=== PATIENT | female | born 1980 | race Caucasian/White ===

== ENCOUNTER → 2017-03-11 | Outpatient (CLI) | payer OTHER ==
[2017-03-11 18:48] LABS: BASO % 0.2 %; BASO ABS # 0.01 K/uL (0-0.2); COMPLETE YES; EOS % 2.5 %; HEMATOCRIT 40.2 % (37-47); IG% 0.2 %; LYMPH % 26.6 %; LYMPH ABS # 1.73 K/uL (1.2-3.4); MEAN CORPUSCULAR HEMOGLOBIN 27.7 pg (25-34); MEAN CORPUSCULAR HGB CONC 32.6 g/dl (32-36); MEAN PLATELET VOLUME 10.8 fL (7.4-10.4); MONO % 7.4 %; NEUT % 63.1 %; PLATELET COUNT 233 K/uL (130-400); RED BLOOD COUNT 4.73 M/uL (4.2-5.4)
[2017-03-11 18:54] LABS: ALT/SGPT 32 U/L (12-78); AST/SGOT 22 U/L (15-37); BLOOD UREA NITROGEN 12 mg/dl (7-18); BUN/CREATININE RATIO 14.6 (10-20); CALCIUM 8.3 mg/dl (8.5-10.1); CARBON DIOXIDE 24 mmol/L (21-32); CHLORIDE 107 mmol/L (98-107); GLUCOSE 98 mg/dl (70-99); POTASSIUM 4.1 mmol/L (3.5-5.1); SODIUM 140 mmol/L (136-145)
[2017-03-11 18:57] LABS: ALB/GLOB RATIO 0.9 (0.9-2); ALKALINE PHOSPHATASE 87 U/L (45-117)
[2017-03-19 11:29] LABS: O&P GIARDIA AG NOT DETECTED (NOT DETECTED); O&P SOURCE OTHER-STOOL
== END | disposition home or self-care (01) ==
LOC: C.LABMFLN 11:59
PROVIDERS: ATTEND Family Medicine
DX: A09 Infectious gastroenteritis and colitis, unspecified (principal)

== ENCOUNTER 2025-03-16 05:19 | Observation (INO) ==
--- NOTE | 2025-02-18 15:25 | PAT Medication Instructions ---
Medication Instructions Date of Service February 18, 2025 Home Medications Medication Instructions Recorded blood sugar diagnostic (Blood #100 ea 04/04/20 Glucose Test strips) blood-glucose meter #1 ea 04/04/20 lancets 30 gauge #100 ea 04/04/20 cholecalciferol (vitamin D3) 50 50 mcg PO DAILY #90 caps 07/09/24 mcg (2,000 unit) capsule cyanocobalamin (vitamin B-12) 1,000 mcg PO DAILY #90 tabs 07/09/24 1,000 mcg tablet metformin 1,000 mg tablet 1,000 mg PO BID #180 tabs 11/05/24 labetalol 100 mg tablet 100 mg PO BID #180 tabs 12/17/24 potassium chloride 10 mEq 10 meq PO DAILY #90 tabs 12/17/24 tablet,extended release cholecalciferol (vitamin D3) 50 mcg (2,000 unit) capsule 50 mcg PO DAILY cyanocobalamin (vitamin B-12) 1,000 mcg tablet 1,000 mcg PO DAILY metformin 1,000 mg tablet 1,000 mg PO BID labetalol 100 mg tablet 100 mg PO BID potassium chloride 10 mEq tablet,extended release 10 meq PO DAILY albuterol sulfate 90 mcg/actuation aerosol inhaler 2 inh inhalation Q6H PRN sob amlodipine 10 mg tablet 10 mg PO QAM hydrochlorothiazide 25 mg tablet 25 mg PO HS lisinopril 40 mg tablet 40 mg PO QAM simvastatin 40 mg tablet 40 mg PO HS DO NOT take the morning of surgery cholecalciferol (vitamin D3) 50 mcg (2,000 unit) capsule 50 mcg PO DAILY cyanocobalamin (vitamin B-12) 1,000 mcg tablet 1,000 mcg PO DAILY metformin 1,000 mg tablet 1,000 mg PO BID potassium chloride 10 mEq tablet,extended release 10 meq PO DAILY hydrochlorothiazide 25 mg tablet 25 mg PO HS lisinopril 40 mg tablet 40 mg PO QAM Take morning of surgery With a small sip of water, OTHERWISE NOTHING TO EAT OR DRINK AFTER MIDNIGHT: labetalol 100 mg tablet 100 mg PO BID albuterol sulfate 90 mcg/actuation aerosol inhaler 2 inh inhalation Q6H PRN sob (use if needed; please bring rescue inhaler with you to hospital day of surgery if possible) amlodipine 10 mg tablet 10 mg PO QAM Take evening before surgery metformin 1,000 mg tablet 1,000 mg PO BID labetalol 100 mg tablet 100 mg PO BID albuterol sulfate 90 mcg/actuation aerosol inhaler 2 inh inhalation Q6H PRN sob (if needed) hydrochlorothiazide 25 mg tablet 25 mg PO HS simvastatin 40 mg tablet 40 mg PO HS Other Notes If you have any questions please call us at [phone] or [phone] or [phone] or [phone]
--- NOTE | 2025-02-26 11:34 | Anesthesiology Consultation ---
Date of Service February 26, 2025 Assessment & Plan (1) Encounter for pre-operative examination: - Check BSG DOS - Infectious disease screening: Per assessment on 02/26/25- Patient had URI symptoms evaluated by [facility] PCP 01/20/25 > s/p CXR/abx completion/supportive management; suspected viral etiology at visit. Patient notes symptoms resolved except occasional mild cough (felt to be allergy related). Otherwise feeling well/at baseline. Patient advised to contact surgeon/PAT if not at baseline prior to surgery. Symptom onset > 10 days prior to surgery date. Nothing further needed at this time. - Outpatient joint assessment: Pt currently scheduled for inpatient pathway. If surgeon requests review for outpatient joint pathway, patient is not recommended candidate for outpatient joint program from anesthesia standpoint based on available information. Chart Review Chart Review: Acceptable Risk for Surgery and Patient seen in Pre Admission Test ing Teaching & Discussion Pre-Anesthesia Teaching/Discussion Notes: Instructed NPO after midnight before surgery,except medications with 15 cc of water. Medication instructions provided according to the PAT guidelines. History Surgery Operation Date: 03/16/25 07:00 Proposed Procedures p Right Total Knee Arthroplasty - Kwasi Guevara MD Height/Weight Height: 5 ft 1 in Weight: 109.4 kg Allergies Allergy/AdvReac Type Severity Reaction Status Date / Time No Known Allergies Allergy Verified 02/17/25 15:22 Medications Home Medications Medication Instructions Recorded Confirmed Last Taken blood sugar diagnostic (Blood #100 ea 04/04/20 01/20/25 Unknown Glucose Test strips) blood-glucose meter #1 ea 04/04/20 01/20/25 Unknown lancets 30 gauge #100 ea 04/04/20 01/20/25 Unknown cholecalciferol (vitamin D3) 50 50 mcg PO DAILY #90 caps 07/09/24 02/17/25 Unknown mcg (2,000 unit) capsule cyanocobalamin (vitamin B-12) 1,000 mcg PO DAILY #90 tabs 07/09/24 02/17/25 Unknown 1,000 mcg tablet metformin 1,000 mg tablet 1,000 mg PO BID #180 tabs 11/05/24 02/17/25 Unknown labetalol 100 mg tablet 100 mg PO BID #180 tabs 12/17/24 02/17/25 Unknown potassium chloride 10 mEq 10 meq PO DAILY #90 tabs 12/17/24 02/17/25 Unknown tablet,extended release albuterol sulfate 90 mcg/actuation 2 inh inhalation Q6H PRN sob 01/20/25 02/17/25 Unknown aerosol inhaler amlodipine 10 mg tablet 10 mg PO QAM 02/17/25 02/17/25 Unknown hydrochlorothiazide 25 mg tablet 25 mg PO HS 02/17/25 02/17/25 Unknown lisinopril 40 mg tablet 40 mg PO QAM 02/17/25 02/17/25 Unknown simvastatin 40 mg tablet 40 mg PO HS 02/17/25 02/17/25 Unknown Past Medical History Medical History Allergic rhinitis Anxiety and depression Arthritis of knee, right Benign essential hypertension Cardiac murmur [facility] PCP visit 01/11/25- "no murmur"; no murmur at PAT visit 02/26/25 HLD (hyperlipidemia) Lower extremity edema Morbid obesity PCOS (polycystic ovarian syndrome) Right knee meniscal tear Sleep apnea Cannot tolerate CPAP Trochanteric bursitis, left hip Type 2 diabetes mellitus Exercise / Class Metabolic Activity III < 4 Walking/Shop/Light housework (one FS: No CP, occasional SOB (stable)) Past Family History Family History Grandmother (Paternal) Diabetes Mother Hypertension Breast cancer Father Hypertension Past Surgical History Surgical History H/O hernia repair H/O left breast biopsy History of endometrial ablation Hx of section (09/2014) Placenta abruption Hx of colonoscopy S/P cholecystectomy Tubal ligation status (10/2019) Past Anesthesia History No Hx of Anesthesia Complications and No Family Hx of Anesthesia Complications History of PONV No Hx of PONV and Hx of Motion Sickness (Cars) Social History Smoking Status: Former smoker Do You Dip or Chew Tobacco: No Smoking End Date: Quit 2013 Hx Alcohol Use: Yes Alcohol type: beer and hard liquor alcohol intake frequency: holidays/special occasions only Hx Substance Use: No substance use type: does not use Review of Systems Patient denies chest pain, shortness of breath, fever, chills. Physical Exam Physical Full cervical extension range of motion. Full TMJ range of motion. TMD 3 finger breaths Mallampati Score III Dentition: intact, + caps Lungs: clear throughout to auscultation Cardiac: regular rate and rhythm, no murmurs noted Spine: normal Carotid arteries: negative bruit Extremities: no LE edema Lab Results Anesthesia Preop Results Results Anesthesia Widget: WBC 9.94 K/ul (4.8-10.8) 02/26/25 Hgb 11.9 g/dl (12.0-16.0) L 02/26/25 Hct 36.3 % (37.0-47.0) L 02/26/25 Plt 284 K/uL (130-400) 02/26/25 Na 139 mmol/L (136-145) 02/26/25 K 4.7 mmol/L (3.5-5.1) 02/26/25 Cl 101 mmol/L (98-107) 02/26/25 CO2 30 mmol/L (21-32) 02/26/25 BUN 13 mg/dl (6-23) 02/26/25 Creat 0.65 mg/dl (0.6-1.2) 02/26/25 Glucose Level 106 mg/dl (70-99(Fasting)) H 02/26/25 PT 9.5 Seconds (9.0-12.0) 02/26/25 PTT 24 Seconds (21-31) 02/26/25 INR 0.9 (0.9-1.1) 02/26/25 HA1c 6.3 % (4.5-5.6) H 02/26/25 Blood Type A Positive 02/26/25 Antibody Screen NEGATIVE 02/26/25 Testing Electrocardiogram Date: 02/26/25 NSR at 70bpm. "Normal ECG" Chest X-Ray Date: 02/26/25 Findings: + NAD
[2025-03-16] MEDS: LR 15ML/HR IV SCH (05:49)
[2025-03-16] MEDS: ACETAMINOPHEN 500 MG TAB PO SCH ×2 (06:08→15:26)
[2025-03-16] MEDS: FAMOTIDINE 20 MG TAB PO SCH (06:08)
[2025-03-16] MEDS: METOCLOPRAMIDE HCL 10 MG TABLET PO SCH (06:08)
[2025-03-16] MEDS: CeleBREX 200 MG CAP PO SCH (06:08)
[2025-03-16] MEDS: LR 60ML/HR IV SCH (06:09)
[2025-03-16] MEDS: dexAMETHasone**PF** 10 MG/ML VIAL IV SCH (06:10)
[2025-03-16] MEDS ORDERED: BUPIVACAINE 0.5 % 5 MG/1 ML PF 10ML VIAL ONE (06:22)
[2025-03-16] MEDS ORDERED: ROPIVACAINE 0.5% 5 MG/ML 30 ML VIAL ONE (06:22)
[2025-03-16] MEDS ORDERED: MIDAZOLAM HCL 1 MG/ML 2ML VIAL ONE ×2 (06:33→07:15)
[2025-03-16] MEDS ORDERED: fentaNYL citrate PF 100 MCG/2 ML VIAL ONE (06:33)
[2025-03-16] MEDS ORDERED: PROPOFOL IV EMULSION 10 MG/ML 20 ML VIAL IV ONE (06:34)
[2025-03-16] MEDS ORDERED: LIDOCAINE 2% 2 ML VIAL/AMP(20MG/ML) INFIL ONE (06:34)
[2025-03-16] MEDS ORDERED: fentaNYL citrate PF 100 MCG/2 ML VIAL IV PRN (06:35)
[2025-03-16] MEDS ORDERED: ePHEDrine sulfate 50 MG/ML AMP IV PRN (06:35)
[2025-03-16] MEDS ORDERED: ONDANSETRON INJ 2 MG/ML 2 ML VIAL IV PRN ×2 (06:35→09:40)
[2025-03-16] MEDS ORDERED: ATROPINE SULFATE 0.1 MG/ML 10ML SYR IV PRN (06:35)
--- NOTE | 2025-03-16 06:42 | History & Physical Bridge Note ---
Date of Service March 16, 2025 History & Physical Bridge Note I have examined the patient, reviewed the History & Physical and in the interval since the performance of the History & Physical I have noted the following changes of clinical significance: no changes noted
[2025-03-16] MEDS: ceFAZolin 2000MG 2,000 MG/15 ML SYR IV SCH ×2 (07:00→15:28)
[2025-03-16] MEDS ORDERED: KETAMINE HCL 10MG/ML SYR ONE (07:28)
[2025-03-16] MEDS: ROPIV 0.5% 246mg, Ketorolac 30mg, EPINEPHrine 0.5mg in NSS INFIL SCH (07:33)
[2025-03-16] MEDS: ORTHO JOINT ANESTHETIC ONE (07:34)
[2025-03-16] MEDS ORDERED: PHENYLEPHRINE HCL 10 MG/ML VIAL ONE (07:48)
[2025-03-16] MEDS: TRANEXAMIC ACID 1,000 MG **IV Intra-op IV SCH (07:55)
--- NOTE | 2025-03-16 09:00 | Operative Report ---
PG Post Operative Report Pre & Post Diagnosis Operation Date: 03/16/25 07:00 Pre-Op Diagnosis: Osteoarthritis Knee Right Post-Op Diagnosis: Osteoarthritis Knee Right I identified the patient and participated in the time-out.: Yes Procedure Operation Date: 03/16/25 07:00 Actual Procedures p Right Total Knee Arthroplasty(Right) - Kwasi Guevara MD Surgeon Kwasi Guevara MD [employer] Win Ralph PA-C Estimated Blood Loss 50 Findings Consistent with Post-Op Diagnosis Operative findings were advanced right knee tricompartment DJD. She had extensive grade 4 [id number] disease in all 3 compartments with osteophytes in all 3 compartments. Specimens Right knee sent for pathology. Anesthesia Type Spinal MAC Complications none Disposition Accompanied Patient To Recovery: No Indications The patient is a 44-year-old female whose had a long history of bilateral knee pain and discomfort described to gotten worse over time. Pain through extensive conservative treatments became less successful over time. Did have a history of a knee scope done elsewhere 4 years ago without much relief. Pain has become debilitating./She failed conservative treatment elected proceed with total knee arthroplasty. Description of Procedure Operative implants consists of: 1. Biomet Vanguard size 57.5 right posterior stabilized femoral component. 2. Biomet size 63 tibial tray. 3. 10 mm posterior stabilized polyethylene insert. 4. 28 x 8 all poly patella. The patient was taken to the operating, identified, and placed on the operating table in the supine position. All contact areas were appropriately padded. IV antibiotics fibra anesthesia team. Spinal anesthetic and adductor canal block had been provided in the holding area. A Crowley catheter was placed in sterile fashion. A right thigh tourniquet was then placed. The right lower extremity was then prepped and draped in usual sterile fashion. The right leg was elevated and exsanguinated with use of Esmarch and a tourniquet was placed at 300 mmHg. An anterior approach of the right knee was then performed to longitudinal incision centered over the patella. Sharp dissection was Through subcutaneous tissue down the extensor mechanism. A medial parapatellar arthrotomy incision was made. Some subperiosteal dissection was carried out medially. The fat pad was dissected from his patella tendon. The lateral patellofemoral ligament was released. Patella subluxated laterally the knee was flexed. The osteophytes taken off distal femur. The ACL and PCL were then released from the distal femur and the tibia subluxated anteriorly. The external treatment LYMErix then placed on the anterior face of the tibia and adjusted 12 mm medially. The proximal tibial cut was made remove out of deejay meter bone from the medial side. Some osteophytes taken off medially. The tibia was then sized to a size 63. Attention drawn the femur. The distal femur examined with a sharp drill. Intramedullary canal was suction. A right 5 degree valgus cutting guide was placed. The distal femoral cutting block was pinned in place to take an additional 3 mm bone off distal femur. The femur was then sized to a size 57.5. The AP cutting block was pinned parallel to the epicondylar axis which was 4 degrees of external rotation. The anterior cut, anterior chamfer, posterior cut, posterior chamfer cuts were made. The box cutting guide was placed and just slight lateral box cut was made. The knee was flexed. The remnants of the medial and lateral menisci were excised. The osteophytes were taken off the posterior aspect of femur. A trial femoral component was placed. The tibial tray was pinned in [place] external rotation and the drill and stem punch were used to create defect in proximal tibia for the tibial tray. The knee was then trialed and the 10 mm insert fit most appropriately. Attention drawn the patella. The patella was cleaned of all soft tissues. Patella thickness measured about 18 mm in thickness and was cut down to 13. It was sized to a size 28 patella. The lug holes were drilled for the 28 patella. The lateral osteophytes removed. Patella button was placed. Knee was taken through range of motion patella tracked nicely with no thumbs test. Attention then drawn to placement permanent components. All trial components were removed. A bone plug was placed into the distal femur limit blood loss. Double batch [place]os G cement was mixed. Biomet PPLCONNECTguard size 57.5 right posterior stabilized femoral component, size 63 tibial tray, 10 mm posterior stabilized polyethylene insert, and a 28 x 8 all poly patella were then cemented in place. The knee was brought out into full extension till cement hardened. Final cement check was then performed. The pericapsular tissues were injected with total 100 cc of Ortho mixed. The patient did receive 1 g tranexamic acid. The tourniquet was then let down for final tourniquet time of 63 minutes. Hemostasis surges electrocautery. Extensor Meclomen then closed with combination 1 PDS suture #1 Vicryl suture in a [id number] fashion. Extensor Meclomen was checked found to be intact the subcutaneous tissue then closed with 2 Dexon suture in buried interrupted fashion skin was closed skin coco. Leg was then cleaned and dried and a sterile dressing with Xeroform, 4 fours, sterile cast padding, Mitch bandage were applied. Patient then transferred to the recovery room in stable condition. The patient tolerated the procedure well and there were no complications. Win Ralph, my physician scheduling assistant, was present for the entire procedure. His assistance was essential and required for appropriate patient positioning, prepping and draping, surgical exposure, performing the technical details of the operation, placement the implants, closure of the wound, and placement of the sterile bandage. I attest to the content of the Intraoperative Record and any orders documented therein. Any exceptions are noted below.
[2025-03-16] MEDS ORDERED: KETOROLAC 30 MG/ML VIAL ONE (09:05)
--- NOTE | 2025-03-16 09:07 | XRay Report ---
XR knee RT 1 or 2V routine CLINICAL HISTORY: Surgical Post Op COMPARISON: None FINDINGS: Right knee prosthesis shows no hardware complication. There is an old healed fracture at t he proximal fibula. No acute fracture or dislocation. There is expected soft tissue gas. Skin coco are present. IMPRESSION: Unremarkable postoperative exam. ACT 112: Negative or not required by law. Electronically signed by: Murphy Yan M.D. 03/16/2025 9:06 AM
[2025-03-16] MEDS ORDERED: bisacodyL 10 MG SUPP PR PRN (09:40)
[2025-03-16] MEDS ORDERED: GLUCOSE 40% GEL 15 GM TUBE PO PRN (09:40)
[2025-03-16] MEDS ORDERED: PHARMACY GLYCEMIC MGMT CONSULT PRN (09:40)
[2025-03-16] MEDS ORDERED: METOCLOPRAMIDE HCL INJ 5 MG/ML 2 ML VIAL IV PRN (09:40)
[2025-03-16] MEDS ORDERED: GLUCAGON FOR INJ 1 MG VIAL SQ PRN (09:40)
[2025-03-16] MEDS ORDERED: ALUMINUM/MAGNESIUM SUSP 30 ML UDC PO PRN (09:40)
[2025-03-16] MEDS ORDERED: MAGNESIUM HYDROXIDE SUSP 30 ML UDC PO PRN (09:40)
[2025-03-16] MEDS ORDERED: CARBOHYDRATES FOR HYPOGLYCEMIA PO PRN (09:40)
[2025-03-16] MEDS ORDERED: NALOXONE HCL 0.4 MG/1 ML VIAL/CARP IV PRN (09:40)
[2025-03-16] MEDS ORDERED: ALBUTEROL HFA 8 GM INHALER INH PRN (09:40)
[2025-03-16] MEDS ORDERED: GLUCOSE 10 TAB/TUBE PO PRN (09:40)
[2025-03-16] MEDS ORDERED: DEXTROSE 50% 50 ML SYRINGE IV PRN (09:40)
[2025-03-16] MEDS ORDERED: diphenhydrAMINE Capsule 25 MG CAP PO PRN (09:40)
--- NOTE | 2025-03-16 10:05 | Pharmacy Report ---
Pharmacy Glycemic Short Note 2 - Date of Service March 16, 2025 - Glycemic Short BSG Results (Last 24 hours): 03/16/25 03/16/25 05:31 09:04 POC Glucose 146 H 213 H OUTPATIENT ANTIDIABETIC REGIMEN: * metformin 1 gm bid ASSESSMENT: * 44 year old s/p surgery, POD 0 - pharmacy consulted for glycemic management. Type 2 diabetic only on oral agent at home for diabetes. Postop BSG >200 - patient did however receive IV steroids preoperatively. Will start novolog weight based stress 3 dosing. Will add on Lantus 0.2 units/kg x 1 now to cover steroid effects. PLAN FOR INPATIENT GLYCEMIC CONTROL: * Hold outpatient oral diabetes medications * Basal insulin * Lantus 20 units x 1 * Bolus insulin * NovoLog per scale ACHS or Q6hrs while NPO * Goal Range: Low 110 mg/dL - High 140 mg/dL * Correction Factor: 15 mg/dL/unit * Nutritional / Prandial insulin per carb ratio of 1 unit per 5 grams CHO consumed
[2025-03-16] MEDS: KETOROLAC 30 MG/ML VIAL IV SCH (10:36)
[2025-03-16] MEDS: DOCUSATE SODIUM 100 MG CAP PO SCH (10:36)
[2025-03-16] MEDS: amLODIPine BESYLATE 5 MG TAB PO SCH (10:36)
[2025-03-16] MEDS: MULTIVITAMIN TAB PO SCH (10:37)
[2025-03-16] MEDS: lisinopril 40 MG TAB PO SCH (10:37)
[2025-03-16] MEDS: LABETALOL HCL 100 MG TAB PO SCH (10:37)
[2025-03-16] MEDS: SODIUM CHLORIDE 0.9% 1,000 ML IV SCH (10:37)
[2025-03-16] MEDS: POTASSIUM CHLORIDE 10 MEQ TABCR PO SCH (10:37)
[2025-03-16] MEDS: SENNA 8.6 MG TAB PO SCH ×2 (10:37→20:20)
[2025-03-16] MEDS: LANTUS PER UNIT CHARGE SC ONE (10:38)
[2025-03-16] MEDS: HYDROmorphone INJ 0.5 MG/0.5 ML SYR IV PRN (12:49)
[2025-03-16] MEDS: INSULIN ASPART PER UNIT CHARGE SC SCH ×2 (12:57→23:57)
--- NOTE | 2025-03-16 13:50 | Anesthesiology Progress Note ---
Date of Service March 16, 2025 Anesthesia Post Procedure Vital Signs Vital Signs: Temp Pulse Pulse Pulse Resp BP BP 03/16/25 13:45 03/16/25 13:00 36.8 C 92 H 16 108/56 L 03/16/25 12:05 36.6 C 92 H 18 131/69 03/16/25 10:50 36.4 C L 77 16 112/67 03/16/25 10:17 36.6 C 86 18 115/68 03/16/25 09:45 36.6 C 68 16 117/68 03/16/25 09:35 81 22 126/70 03/16/25 09:25 36.6 C 81 20 123/70 03/16/25 09:15 71 19 104/66 03/16/25 09:05 69 22 112/71 03/16/25 08:56 36.2 C L 78 16 119/63 03/16/25 05:46 36.6 C 85 20 120/91 Pulse Ox O2 Del Method O2 Flow Rate 03/16/25 13:45 Nasal Cannula 2 03/16/25 13:00 94 Room Air 03/16/25 12:05 97 Room Air 03/16/25 10:50 95 Nasal Cannula 2 03/16/25 10:17 97 Room Air 03/16/25 09:45 93 Room Air 03/16/25 09:35 93 Room Air 03/16/25 09:25 93 Room Air 03/16/25 09:15 95 Oxymask 4 03/16/25 09:05 94 Oxymask 9 03/16/25 08:56 96 Oxymask 9 03/16/25 05:46 97 Room Air Pain Intensity Right Knee: Pain Intensity: 4 Notes Mental Status: alert / awake / arousable Patient Amnestic to Procedure: Yes Nausea / Vomiting: adequately controlled Pain: adequately controlled Airway Patency, RR, SpO2: stable & adequate BP & HR: stable & adequate Hydration State: stable & adequate Neuraxial Anesthesia: was administered and sensory block is resolving Anesthetic Complications: no major complications apparent
[2025-03-16] MEDS: TRANEXAMIC ACID / 0.7% NACL 1,000 MG/100 ML BAG IV SCH (15:28)
[2025-03-16] MEDS: oxyCODONE HCL IR 5 MG TAB (IMMEDIATE RELEASE) PO PRN (16:05)
[2025-03-16] MEDS: ASCORBIC ACID 500 MG TAB PO SCH (17:15)
[2025-03-16] MEDS: ASPIRIN 81 MG ECTAB PO SCH (20:18)
[2025-03-16] MEDS: SIMVASTATIN 40 MG TAB PO SCH (20:18)
[2025-03-16] MEDS: hydroCHLOROthiazide 25 MG TAB PO SCH (20:18)
[2025-03-16] MEDS: LANTUS PER UNIT CHARGE SC SCH (20:34)
[2025-03-16 23:15] VITALS: O2SAT 97
[2025-03-17 02:57] VITALS: TEMP 98.1
[2025-03-17 05:55] LABS: Hematocrit (blood only) 31.2 % (37.0-47.0); Hemoglobin 10.4 g/dl (12.0-16.0); Mean Corpuscular Hgb Conc 33.3 g/dL (32.0-36.0); Mean Corpuscular Volume 83.9 fL (80.0-100.0); Mean Platelet Volume 10.6 fL (9.4-12.4); Platelet Count 280 K/uL (130-400); RDW Coefficient of Variation 13.1 % (11.5-14.5); RDW Standard Deviation 39.7 fL (36.4-46.3); Red Blood Count 3.72 M/uL (4.20-5.40); White Blood Count 19.71 K/ul (4.8-10.8)
[2025-03-17 06:09] LABS: BUN Creatinine Ratio 18.3 (10-20); Calcium 8.5 mg/dl (8.6-10.3); Creatinine Clr Calc Pharmacy 98.9 ml/min; Potassium 4.1 mmol/L (3.5-5.1)
[2025-03-17 06:55] VITALS: BP 113/68; PULSE 83; RESP 16
--- NOTE | 2025-03-17 08:26 | Orthopedic Progress Note ---
Date of Service March 17, 2025 Assessment & Plan (1) Status post total right knee replacement: * Continue Current Treatment * Disposition: home * Daily treatment: Physical Therapy/ Occupational Therapy per protocol * Weight bearing status: WBAT RLE * Continue to monitor for ABLA * Pain control * DVT prophylaxis, ASA * Office/hospital f/u 2 weeks for progress check and staple/suture removal * Plan for discharge today pending PT/OT clearance Subjective . Active Problems: S/p right TKA 44 y/o female s/p right TKA. Doing well overall, pain managed and improved function. Denies fever/chills, chest pain/SOB, nausea/vomiting. Otherwise no complaints. Review of Systems All systems reviewed & are unremarkable except as noted in HPI & below. Physical Exam . R knee surgical dressing CDI, not removed for exam. Otherwise no obvious deformity or overlying skin changes RLE. Diffuse TTP distal thigh and knee region. Otherwise no specific tenderness of proximal thigh, lower leg, foot/ankle. AROM knee flexion 10-90 degrees. AROM foot/ankle intact. Sensation intact plantar/dorsal foot. Brisk capillary refill. Results & Data Results & Data Laboratory Results . Diagnostic Findings . Knee X-Ray 03/16/25 08:52 XR knee RT 1 or 2V routine CLINICAL HISTORY: Surgical Post Op COMPARISON: None FINDINGS: Right knee prosthesis shows no hardware complication. There is an old healed fracture at the proximal fibula. No acute fracture or dislocation. There is expected soft tissue gas. Skin coco are present. IMPRESSION: Unremarkable postoperative exam. ACT 112: Negative or not required by law. Electronically signed by: Murphy Yan M.D. 03/16/2025 9:06 AM PG Care Time/CCT Total # of Minutes Spent Total Time Spent with Patient: Total time spent is greater than 50% in coordination of care (as documented) at patient's floor/unit and/or counseling patient: Coding Level of Care Code 78947 Post Operative Follow-Up Diagnoses Status post total right knee replacement Z96.651
[2025-03-17] MEDS: LANTUS PER UNIT CHARGE SC ONE (08:37)
[2025-03-17] MEDS: dexAMETHasone 10 MG in SYRINGE 0 ML IV SCH (08:40)
[2025-03-17] MEDS: CHOLECALCIFEROL 25 MCG (1000 UNITS) TAB PO SCH (08:41)
[2025-03-17] MEDS: CYANOCOBALAMIN (B-12) 500 MCG TABLET PO SCH (08:41)
== END 2025-03-17 12:30 | disposition home or self-care (01) ==
LOC: ASU 05:19 → 3E 05:19
DX: M25.761 Osteophyte, right knee; Z68.42 Body mass index [BMI] 45.0-49.9, adult; M17.11 Unilateral primary osteoarthritis, right knee; G47.33 Obstructive sleep apnea (adult) (pediatric); Z79.899 Other long term (current) drug therapy; E66.01 Morbid (severe) obesity due to excess calories; Z79.82 Long term (current) use of aspirin; M65.961 Unspecified synovitis and tenosynovitis, right lower leg; I10 Essential (primary) hypertension; E11.9 Type 2 diabetes mellitus without complications; Z87.891 Personal history of nicotine dependence; Z79.84 Long term (current) use of oral hypoglycemic drugs